=== PATIENT | female | born 1990 | race Caucasian/White ===

== ENCOUNTER 2023-08-26 07:46 | Emergency (ER) | payer OTHER, SELFPAY ==
[2023-08-26] VITALS (8 sets, daily range): BP systolic 108–152; BP diastolic 62–94; PULSE 50–70; RESP 18–20; TEMP 36.6; O2SAT 98–100
--- NOTE | ~2023-08-26 | CT_ITS ---
EXAMINATION: CT abdomen pelvis w con DATE: 08/26/2023 09:28 INDICATION: Abdominal pain. Vomiting. TECHNIQUE: Computed tomography (CT) of the abdomen and pelvis was performed with 100 mL Omnipaque 350 intravenous contrast. Automated exposure control and iterative reconstruction technique were employe d. The dose-length product was 925.50 mGy-cm. COMPARISON: None. FINDINGS: The visualized portions of the lung bases demonstrate minimal atelectasis. A calcified righ t lung nodule is consistent with old granulomatous disease. No pleural effusion. The heart size is no rmal. No pericardial effusion. The liver, gallbladder, spleen, pancreas, adrenal glands, and kidneys are normal. There are no dilated loops of bowel. The appendix is normal. There are no pathologically enlarged lymph nodes. There is no free intraperitoneal fluid. There is mild lumbar spondylosis. IMPRESSION: 1. No etiology for the patient's symptoms. Reviewed, dictated and finalized at location A. [employer] DIRECT[employer]
[2023-08-26] MEDS: SODIUM CHLORIDE 0.9% IV 1,000 ML 999 ML IV CONT ×2 (08:07→09:15)
[2023-08-26] MEDS: ONDANSETRON INJ 4 MG/2 ML VIAL 8 MG IV PUSH (08:08)
[2023-08-26 08:10] LABS: Basophils Percent Auto 0.2 % (0.2-1.2); Eosinophils Percent Auto 0.1 % (0-4.4); Hematocrit 41.2 % (37.0-47.0); Hemoglobin 14.2 g/dL (12.0-15.0); Immature Granulocyte Absolute 0.09 K/mm3 (0.00-0.031); Immature Granulocyte Percent A 0.5 % (0-0.5); Lymphocytes Absolute Auto 1.08 K/mm3 (0.9-3.2); Lymphocytes Percent Auto 6.1 % (18.3-44.2); Mean Corpuscular HGB Conc 34.5 g/dl (32-36); Mean Corpuscular Hemoglobin 29.6 pg (26-34); Mean Corpuscular Volume 85.8 fl (80-100); Mean Platelet Volume 10.8 fl (7.4-10.4); Monocytes Absolute Auto 0.8 K/mm3 (0.1-0.6); Monocytes Percent Auto 4.6 % (2.6-8.5); Neutrophils Absolute Auto 15.6 K/mm3 (1.3-6.7); Neutrophils Percent Auto 88.5 % (45.5-73.1); Platelet Count Result 393 k/mm3 (150-375); Red Cell Distribution Width 12.5 % (11.5-14.5); White Blood Count 17.7 K/mm3 (4.5-10.0)
[2023-08-26 08:49] LABS: Alanine Aminotransferase 26 U/L (6-35); Albumin Level 4.5 g/dL (3.5-5.1); Alkaline Phosphatase 98 U/L (38-126); Anion Gap 12 mmol/L (8-16); Aspartate Amino Transferase 25 U/L (14-36); Bilirubin,Total 0.7 mg/dL (0.2-1.3); Blood Urea Nitrogen 9 mg/dL (7-17); Calcium 8.6 mg/dL (8.4-10.2); Carbon Dioxide 23 mmol/L (22-30); Chloride 102 mmol/L (98-107); Estimated CRCL calculation 149 ml/min; Estimated Glomerular Filt Rate > 60; Glucose 161 mg/dL (65-110); Lipase 56 U/L (23-300); Potassium 3.2 mmol/L (3.4-5.0); Sodium 137 mmol/L (137-145)
[2023-08-26 09:00] LABS: Appearance Urine Clear (Clear); Bacteria Urine None Seen /hpf; Bilirubin Urine Negative (Negative); Blood Urine 3+ (Negative); Color Urine Yellow (Yellow); Glucose Urine UA Trace mg/dL (Negative); Ketones Urine 4+ mg/dL (Negative); Leukocyte Esterase Ur Trace LEU/UL (Negative); Nitrate Urine Negative (Negative); Non Pathogenic Casts 0-2; Protein Urine 1+ mg/dL (Negative); RBC Urine 51-100 /hpf (0-2); Specific Grav Ur 1.023 (1.001-1.035); Squamous Epithelial Cell Urine Occasional /hpf (Few); Urobilinogen Urine 0.2 mg/dL (<2.0); pH Urine >=9.0 (5.0-9.0)
--- NOTE | 2023-08-26 09:02 | PC.NURSE ---
Dr. Rodriguez notified, pt continued dry trey VO for COVID/FLU PCR received.
[2023-08-26 09:10] LABS: Add Urine Microscopic? YES
[2023-08-26] MEDS: diphenhydrAMINE HCl INJ 50 MG/ML VIAL 25 MG IV PUSH (09:15)
[2023-08-26] MEDS: FAMOTIDINE 20 MG/2 ML VIAL IV PUSH (09:16)
[2023-08-26] MEDS: METOCLOPRAMIDE HCL INJ 10 MG/2 ML VIAL IV PUSH (09:16)
[2023-08-26 09:41] LABS: Influenza A QL RT-PCR Negative (Negative); Influenza B QL RT-PCR Negative (Negative); SARS-CoV-2 RNA PCR Negative (Negative)
--- NOTE | 2023-08-26 10:03 | ED.NAVMDI ---
HPI - Nausea/Vomiting/Diarrhea General Chief complaint: Nausea/Vomiting/Diarrhea Stated complaint: NAUSEA,VOMITING,DIARRHEA Time Seen by Provider: 08/26/23 09:09 Source: patient Mode of arrival: ambulatory Limitations: no limitations History of Present Illness HPI Narrative: This is a 32-year-old female that presents to the emergency department for nausea vomiting. Ongoing since last night. Associated with epigastric discomfort. Also reports diarrhea. Denies fevers. Related Data Allergies Allergy/AdvReac Type Severity Reaction Status Date / Time No Known Allergies Allergy Verified 08/26/23 07:58 Review of Systems Review of Systems: CONSTITUTIONAL: Denies fever GASTROINTESTINAL: Reports abdominal pain, nausea, vomiting, and diarrhea. GENITOURINARY: Denies dysuria All systems reviewed & are unremarkable except as noted in HPI and below PMFSH Past Medical History Medical History (Updated 08/26/23 @ 12:41 by Maria De Jesus Dumont PA-C) History of anxiety History of gastroesophageal reflux (GERD) Social History Social History (Updated 08/26/23 @ 10:04 by Maria De Jesus Dumont PA-C) Smoking status: Never smoker Exam Narrative: GENERAL: Well-appearing, well-nourished, and in no acute distress. HEAD: Normocephalic, atraumatic. EYES: EOMI. CHEST: Clear to auscultation. No respiratory distress. No wheezes rales or rhonchi HEART: Regular rate and rhythm. No murmur heard. Normal peripheral pulses. ABDOMEN: Soft, nondistended, normal active bowel sounds. Mild tenderness to palpation in the epigastrium, without guarding EXTREMITIES: Normal range of motion. No edema. SKIN: Warm, dry, no rash. NEURO: No focal deficits. Alert and oriented x3. PSYCH: Normal mood and affect Course Course Emergency Course: Patient updated on workup. Able to tolerate PO challenge Vital Signs Vital signs: Vital Signs Pulse Rate 55 L 08/26/23 07:47 Respiratory Rate 20 08/26/23 07:47 Blood Pressure 134/78 08/26/23 07:47 Pulse Oximetry 98 08/26/23 07:47 Temperature 97.9 F 08/26/23 07:57 Pulse Rate 54 L 08/26/23 12:07 Respiratory Rate 18 08/26/23 12:07 Blood Pressure 152/80 H 08/26/23 12:07 Pulse Oximetry 100 08/26/23 12:07 MDM - Nausea/Vomiting/Diarrhea MDM Narrative Medical decision making narrative: Patient presents to the emergency department for nausea, vomiting and diarrhea. Ongoing since last night. She is afebrile and nontoxic appearing. Her vitals are stable. CBC with leukocytosis to 17.7. Metabolic panel with mild hypokalemia with potassium of 3.2. Urine with 6-10 white blood cells, patient does not endorse any urinary symptoms. This will be sent for culture. Bedside test is negative. CT scan abdomen and pelvis is without acute findings. Patient updated on workup. Able to tolerate PO challenge. She was instructed on further care likely viral infection. Will be sent with potassium prescription for replacement. She is to follow up with primary provider. She was given warnings to return to the ER Differential Diagnosis Differential diagnosis: Likely food poisoning, gastroenteritis, dehydration and other (Biliary colic, pancreatitis, COVID, influenza) Lab Data Attestation: I reviewed the patient's lab results. 08/26/23 08:01 08/26/23 08:22 Labs: Lab Results 08/26/23 08/26/23 08/26/23 Range/Units 08:01 08:22 08:59 WBC 17.7 H (4.5-10.0) K/mm3 RBC 4.80 (4.2-5.4) M/mm3 Hgb 14.2 (12.0-15.0) g/dL Hct 41.2 (37.0-47.0) % MCV 85.8 (80-100) fl MCH 29.6 (26-34) pg MCHC 34.5 (32-36) g/dl RDW 12.5 (11.5-14.5) % Plt Count 393 H (150-375) k/mm3 MPV 10.8 H (7.4-10.4) fl Immature Gran % (Auto) 0.5 (0-0.5) % Neut % (Auto) 88.5 H (45.5-73.1) % Lymph % (Auto) 6.1 L (18.3-44.2) % [place] % (Auto) 4.6 (2.6-8.5) % Eos % (Auto) 0.1 (0-4.4) % Baso % (Auto) 0.2 (0.2-1.2) % Lymph # (A
[2023-08-26 14:09] LABS: Magnesium 1.8 mg/dL (1.6-2.3)
== END 2023-08-26 12:52 | disposition home or self-care (01) ==
PROVIDERS: Emergency Medicine; Emergency Provider Physician Assistant
DX: E87.6 Hypokalemia (principal); R11.2 Nausea with vomiting, unspecified; Z20.822 Contact with and (suspected) exposure to COVID-19
CPT/HCPCS: 36415; 74177; 80053; 81001; 81025; 83690; 83735; 85025; 87086; 87088; 87636; 96361; 96374; 96375; 99284; J1200; J2405; J2765; J7030; Q9967